=== PATIENT | female | born 1995 | race Caucasian/White ===

== ENCOUNTER 2016-10-19 14:47 | Emergency (ER) | payer OTHER ==
[~2016-10-19] VITALS: Ht 162.6 cm; Wt 58.2 kg
[~2016-10-19 14:47] MED LIST: ALBU1AER9 INH
[2016-10-19 14:49] VITALS: BP 133/82; PULSE 113; TEMP 36.8; O2SAT 97; Ht 162.6 cm; Wt 58.2 kg
[2016-10-20] MEDS ORDERED: BENZ100C18 PO (12:38)
[2016-11-26] MEDS ORDERED: FLUT0.15 NAE (12:10)
[2016-11-26] MEDS ORDERED: ALBU18002 INH (12:27)
[2016-11-26] MEDS ORDERED: LISD40CA PO (16:59)
[2016-11-26] MEDS ORDERED: CETI10TA84 PO (17:02)
[2016-11-26] MEDS ORDERED: FEXO1TAB49 PO (17:02)
== END 2016-10-19 16:06 | disposition left against medical advice (07) ==
LOC: C.EDB 14:49
DX: R05 Cough (principal); R06.02 Shortness of breath

== ENCOUNTER 2016-10-20 10:07 | Emergency (ER) | payer OTHER ==
[~2016-10-20] VITALS: Ht 162.6 cm; Wt 58.1 kg
[2016-10-20 10:18] VITALS: Ht 162.6 cm; Wt 58.1 kg
[2016-10-20] MEDS ORDERED: HYDROCODONE/HOMATROPINE SYRUP 5MG/1.5MG 5ML UDP PO STA (10:56)
--- NOTE | 2016-10-20 10:58 | EMERGENCY ROOM VISIT NOTE ---
History Report prepared by Osei: Price Mireles Under the Supervision of: Dr. Nelida Solano D.O. First contact with patient: 10:49 Chief Complaint: FEVER Stated Complaint: FEVER,COUGH, HEADACHE History of Present Illness The patient is a 21 year old female who presents to the Emergency Room with complaints of persistent cough for the past week. She also complains of difficulty breathing and a subjective fever. The patient has a history of exercise-induced asthma and has been taking her inhaler. She denies feeling like she is wheezing, leg cramping or swelling, or . Source of History: patient Onset: the past week Position: other (global) Timing: other (persistent) Associated Symptoms: + SOB (difficulty breathing), + fevers (subjective) Note: Denies: wheezing, leg cramping or swelling, Review of Systems See HPI for pertinent positives & negatives. A total of 10 systems reviewed and were otherwise negative. Past Medical & Surgical Medical Problems: (1) Acute bronchitis (2) Acute maxillary sinusitis (3) Acute sinusitis (4) Acute sinusitis (5) Adult ADHD (6) Alcohol intoxication (7) Allergic rhinitis (8) Asthma (9) Asthma (10) Asthma (11) Cough (12) Diarrhea (13) Drug overdose, multiple drugs (14) Febrile illness (15) Fever (16) Fever (17) Headache (18) Headache (19) Migraine (20) Sinus headache (21) Sinus infection (22) Sore throat (23) Sore throat (24) Upper respiratory infection (25) Urinary tract infection (26) UTI (urinary tract infection) (27) UTI (urinary tract infection) Family History Patient reports no known family medical history. Social History Smoking Status: Never Smoker Alcohol Use: none Drug Use: none Marital Status: single Housing Status: lives with roommate Occupation Status: [employer] student Current/Historical Medications Scheduled Benzonatate (Tessalon Perles), 100 MG PO TID Control Pills ( Control Pills), 1 TAB PO DAILY Cetirizine (Zyrtec), 10 MG PO QPM Fexofenadine Hcl (Haylee Allergy), 1 TAB PO QAM Fluticasone Propionate (Nasal) (Flonase Allergy Relief), 2 SPRAYS NIURKA DAILY Lisdexamfetamine Dimesylate (Vyvanse), 40 MG PO DAILY Scheduled PRN Albuterol Sulfate (Proair Respiclick), 2 PUFFS INH Q4 PRN for SOB/Wheezing Allergies Coded Allergies: Macadamia Nut Oil (Verified Allergy, Unknown, ., 10/20/16) Physical Exam Vital Signs Date Time Temp Pulse Resp B/P Pulse Ox O2 Delivery O2 Flow Rate FiO2 10/20/16 12:49 37.0 80 18 122/74 97 10/20/16 12:30 80 122/74 97 Room Air 10/20/16 10:18 37.3 106 18 134/88 97 Physical Exam HEENT: Head - normocephalic and atraumatic Pupils are equal, round, and reactive to light. Extraocular eye muscles are intact, and sclera are anicteric. Nose - moist nasal mucosa without discharge. Mouth - moist buccal mucosa. Oropharynx is nonerythematous and there is no tonsillar exudate or edema noted. Neck: Supple; no JVD, nuchal rigidity, cervical lymphadenopathy. Heart: Regular rate and rhythm. There is a normal S1 and S2 with no murmurs, clicks, or gallops appreciated. Lungs: Clear to auscultation bilaterally with no wheezes, rales, or rhonchi. Abdomen: Soft, completely nontender, nondistended, with good bowel sounds. There are no palpable pulsatile masses or hepatosplenomegaly. There is no guarding, rigidity, or rebound noted. Extremities: No evidence of cyanosis, clubbing, or edema. There are easily palpable peripheral pulses. Skin: warm and dry with good turgor and no rashes. Medical Decision & Procedures ER Provider Diagnostic Interpretation: X-ray results as stated below per interpretation by me and the radiologist: TWO VIEW CHEST CLINICAL HISTORY: Cough. Fever. FINDINGS: PA and lateral chest radiographs are compared to study dated 09/07/2015. The cardiomediastinal silhouette is unremarkable. The lungs and pleural spaces are clear. There is no pneumothorax. The bony thorax appears intact. IMPRESSION: No active disease in the chest. Electronically signed by: Jake Tay M.D. 10/20/2016 12:13 PM Dictated Date/Time: 10/20/2016 12:13 PM Medications Administered Medications (Trade) Dose Ordered Sig/Heber Route Start Time Stop Time Status Last Admin Dose Admin Hydrocodone Bit/ Homatropine Methylb (Hycodan Syrup) 5 ml NOW STAT PO 10/20/16 10:56 10/20/16 10:57 DC 10/20/16 11:03 5 ML Procedure Medications: Hycodan Syrup PO. ED Course 1053: Past medical records reviewed. The patient was evaluated in room B9. A complete history and physical exam was performed. 1056: Ordered Hycodan Syrup 5 ml PO. Patient had chest x-ray as described above. 1130: I reevaluated the patient at this time and she was feeling better. She did not like the Hycodan Syrup so I recommended Tessalon pearls. 1223: Upon reevaluation, the patient is resting comfortably. I discussed findings and results with her. She verbalized agreement of the treatment plan. She was discharged home. Medical Decision The patient is a 21 year old female who presents to the ED with a cough. Differential diagnosis includes bronchitis, pneumonia, sinusitis, and viral illness. This is a 21-year-old female patient presents to the emergency department with a cough. She has no fever at this time. O2 saturations were normal. Chest x- ray was unremarkable. I think the patient is suffering from an acute bronchitis which is most likely viral. I will treat her with cough meds. She was prescribed Tessalon Perles. The patient was told to follow-up with the PCP if the cough persists or if she develops a fever. Impression Primary Impression: Viral bronchitis Scribe Attestation The scribe's documentation has been prepared under my direction and personally reviewed by me in its entirety. I confirm that the note above accurately reflects all work, treatment, procedures, and medical decision making performed by me. Departure Information Dispostion Home / Self-Care Prescriptions Benzonatate (TESSALON PERLES) 100 Mg Cap 100 MG PO TID, #10 CAP Prov: Nelida Solano D.O. 10/20/16 Referrals No Doctor, Assigned (PCP) Forms HOME CARE DOCUMENTATION FORM, IMPORTANT VISIT INFORMATION Patient Instructions My [facility] Additional Instructions Rest. Take tessalon perles every 8 hours for cough. If symptoms worsen, return to the ER or [facility]
--- NOTE | 2016-10-20 12:15 | DIAGNOSTIC IMAGING REPORT ---
TWO VIEW CHEST CLINICAL HISTORY: Cough. Fever. FINDINGS: PA and lateral chest radiographs are compared to study dated 09/07/2015. The cardiomediastinal silhouette is unremarkable. The lungs and pleural spaces are clear. There is no pneumothorax. The bony thorax appears intact. IMPRESSION: No active disease in the chest. Electronically signed by: Jake Tay M.D. 10/20/2016 12:13 PM Dictated Date/Time: 10/20/2016 12:13 PM
[2016-10-20] MEDS ORDERED: BENZ100C18 PO (12:38)
[2016-10-20 12:49] VITALS: BP 122/74; PULSE 80; TEMP 37; O2SAT 97
[2016-11-26] MEDS ORDERED: FLUT0.15 NAE (12:10)
[2016-11-26] MEDS ORDERED: ALBU18002 INH (12:27)
[2016-11-26] MEDS ORDERED: LISD40CA PO (16:59)
[2016-11-26] MEDS ORDERED: FEXO1TAB49 PO (17:02)
[2016-11-26] MEDS ORDERED: CETI10TA84 PO (17:02)
== END 2016-10-20 12:49 | disposition home or self-care (01) ==
LOC: C.EDB 10:08
DX: J20.8 Acute bronchitis due to other specified organisms (principal); J45.909 Unspecified asthma, uncomplicated; F90.9 Attention-deficit hyperactivity disorder, unspecified type; Z87.440 Personal history of urinary (tract) infections; Z86.19 Personal history of other infectious and parasitic diseases; Z79.899 Other long term (current) drug therapy; Z91.018 Allergy to other foods

== ENCOUNTER 2016-11-03 17:40 | Emergency (ER) | payer OTHER ==
[~2016-11-03] VITALS: Ht 162.6 cm; Wt 57.2 kg
[2016-11-03 17:43] VITALS: BP 124/78; PULSE 82; TEMP 36.7; O2SAT 97; Ht 162.6 cm; Wt 57.2 kg
[2016-11-03] MEDS ORDERED: PRED20TA2 PO (18:13)
--- NOTE | 2016-11-04 02:14 | EMERGENCY ROOM VISIT NOTE ---
ED Visit Note First contact with patient: 17:50 Chief Complaint: Sinus congestion and pressure. History of Present Illness: Ms. Blanco is a 21-year-old white female who ambulates into the ED complaining of sinus congestion and pressure. Historically patient reports she has a history of sinus disease; reviewing her medical records over the last year patient has been seen in this emergency department 5-6 times and diagnosed with sinusitis. She has been encouraged to follow-up with ENT specialist but has not done so. Patient reports approximately 13 days ago she was seen in this emergency department for cough and congestion and diagnosed with viral bronchitis. She was encouraged to use her inhaler and [id number] decongestions for her symptoms. Patient goes on to report that over the last 3-4 days she has been having increasing sinus pressure over the maxillary sinuses and over the last 2 days she reports her hearing has decreased on the right; like someone put a bowl over my ear. Currently she rates her discomfort 6/10. Her pain is nonradiating. She has not identified any aggravating or alleviating factors related to the pressure. She has not taken any medication specifically for her painful discomfort but has been taking her decongestants without relief of her discomfort. Associated with her pain she reports she still has a mildly productive cough of yellow to greenish sputum. She denies fevers, chills, sweats, facial swelling/erythema, visual changes, tearing, light sensitivity, ear drainage, sore throat, difficulty swallowing, dizziness, lightheadedness, neck pain/stiffness, voice changes, hemoptysis, chest pain/discomfort, palpitations, abdominal pain, decreased appetite, nausea/ vomiting. Review of Systems: As noted above in history of present illness. 8 body systems were reviewed and found to be negative as noted above. Past Medical History: As previously noted, asthma, bronchitis, attention deficit disorder. Current Medications: control, Flonase, Vyvanse, Haylee, Zyrtec and albuterol. Allergies to Medications: Patient denies. Social History: Patient is currently University student; she feels safe in her home environment; she denies tobacco use and admits to alcohol use. Physical Examination: Vital Signs: Date Time Temp Pulse Resp B/P Pulse Ox O2 Delivery O2 Flow Rate FiO2 11/03/16 17:57 98 Room Air 2/3/17 17:43 36.7 82 20 124/78 97 Room Air GENERAL: 21-year-old female in mild distress due to pain, nontoxic-appearing, afebrile and hemodynamically stable. NEUROLOGICAL: Awake, alert and oriented to person, place and time. Answering questions appropriately and following commands. Normal gait. Good hand eye coordination. No focal motor sensory deficits. SKIN: Warm, dry and pink. No soft tissue eruptions or trauma noted. HEENT: Atraumatic and normocephalic. No erythema over the frontal or maxillary sinuses. Mild tenderness over the frontal sinuses. External ears are nontender. Auditory canals are pink and patent. Right tympanic membrane is slightly bulging. The membrane itself is pearly nguyen with normal light reflex. Left tympanic membrane is unremarkable. No preauricular or postauricular lymphadenopathy. No tenderness or erythema over the mastoid processes. PERRLA. EOMI without nystagmus. No light sensitivity. Sclera white and conjunctiva pink without drainage. No drainage from naris, but mild audible congestion. Oral cavity moist and pink. Airway patent. Uvula midline and no abscesses are seen. Pharynx is nonerythematous or edematous. No tonsillar hypertrophy or exudates. Speech normal. No cervical lymphadenopathy. Trachea midline. No jugular venous distention. BACK: No tenderness over the bony cervical spine. No nuchal rigidity. Full range of motion of the cervical spine THORAX: Lungs sounds are clear to auscultation and equal bilaterally with symmetrical chest wall. No wheezing, rales or rhonchi. No increased respiratory effort or rate. ED Course: Patient is assessed as noted above. Patient was offered pain medications and refused. Patient was educated about tonight's findings and instructed on her treatment plan; she verbalizes understanding and agreement with this plan. Clinical Impression: Sinusitis. Disposition: Patient discharged home in stable condition; prior to departure she was reassessed and subjectively reported she was pain-free. Plan: Patient was encouraged to continue her current medications as prescribed. Patient was encouraged to alternate ibuprofen and acetaminophen as needed for pain every 3 hours. Patient was prescribed prednisone 60 mg once a day for 5 days. Patient was encouraged to follow-up with ENT specialist as soon as practical for reevaluation. Patient was encouraged return the ED for worsening/uncontrolled pressure, ear drainage, visual changes, fevers, redness or swelling over the sinuses or any new/concerning symptoms.
[2016-11-26] MEDS ORDERED: FLUT0.15 NAE (12:10)
[2016-11-26] MEDS ORDERED: ALBU18002 INH (12:27)
[2016-11-26] MEDS ORDERED: LISD40CA PO (16:59)
[2016-11-26] MEDS ORDERED: FEXO1TAB49 PO (17:02)
[2016-11-26] MEDS ORDERED: CETI10TA84 PO (17:02)
== END 2016-11-03 18:21 | disposition home or self-care (01) ==
LOC: C.EDB 17:41 → C.EDD 18:21
DX: J32.9 Chronic sinusitis, unspecified (principal); J45.909 Unspecified asthma, uncomplicated; F98.8 Other specified behavioral and emotional disorders with onset usually occurring in childhood and adolescence; Z79.3 Long term (current) use of hormonal contraceptives; Z79.899 Other long term (current) drug therapy

== ENCOUNTER 2016-11-26 19:55 | Emergency (ER) | payer OTHER ==
[~2016-11-26] VITALS: Ht 160 cm; Wt 58.0 kg
[~2016-11-26 19:55] MED LIST changes: +ALBU18002 INH; -ALBU1AER9 INH; +CETI10TA84 PO; +FEXO1TAB49 PO; +FLUT0.15 NAE; +LISD40CA PO; +PRED20TA2 PO
[2016-11-26 20:02] VITALS: TEMP 37.2; Ht 160 cm; Wt 58.0 kg
[2016-11-26] MEDS ORDERED: BCPILLS PO (20:23)
--- NOTE | 2016-11-26 20:45 | DIAGNOSTIC IMAGING REPORT ---
CHEST 2 VIEWS ROUTINE CLINICAL HISTORY: Cough. Sore throat. COMPARISON STUDY: Chest radiograph October 20, 2016. FINDINGS: Lung volumes are normal and lungs are clear. There is no pneumothorax or pleural effusion. Cardiac size is normal. Mediastinal contours are normal. There is no evidence of pulmonary edema. IMPRESSION: No acute cardiopulmonary findings. Electronically signed by: Manuel Acosta M.D. 11/26/2016 8:43 PM Dictated Date/Time: 11/26/2016 8:43 PM
[2016-11-26 21:41] VITALS: BP 121/82; PULSE 73; O2SAT 98
--- NOTE | 2016-11-26 23:41 | EMERGENCY ROOM VISIT NOTE ---
History First contact with patient: 20:09 Chief Complaint: SORETHROAT Stated Complaint: SORE THROAT History of Present Illness The patient is a 21 year old female who presents to the Emergency Room with complaints of persistent sore throat symptoms for the past 7 days. The patient states that she has had intermittent sinus infections off and on for the past several months. 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 When she goes home she is following with ENT. The patient states that she has not had significant fever or chills. She does take Haylee and Zyrtec. She has had a mild cough, but no wheezing. She rates her current discomfort a 5/10. Review of Systems More than 10 systems were reviewed and otherwise negative with the exception of history of present illness. Past Medical/Surgical History Medical Problems: (1) Acute bronchitis (2) Acute maxillary sinusitis (3) Acute sinusitis (4) Acute sinusitis (5) Adult ADHD (6) Alcohol intoxication (7) Allergic rhinitis (8) Asthma (9) Asthma (10) Asthma (11) Cough (12) Diarrhea (13) Drug overdose, multiple drugs (14) Febrile illness (15) Fever (16) Fever (17) Headache (18) Headache (19) Migraine (20) Sinus headache (21) Sinus infection (22) Sore throat (23) Sore throat (24) Upper respiratory infection (25) Urinary tract infection (26) UTI (urinary tract infection) (27) UTI (urinary tract infection) Family History Patient reports no known family medical history. Social History Smoking Status: Never Smoker Alcohol Use: none Drug Use: none Marital Status: single Housing Status: lives with roommate Occupation Status: [employer] student Current/Historical Medications Scheduled Control Pills ( Control Pills), 1 TAB PO DAILY Cetirizine (Zyrtec), 10 MG PO QPM Fexofenadine Hcl (Haylee Allergy), 180 MG PO QAM Fluticasone Propionate (Nasal) (Flonase Allergy Relief), 2 SPRAYS NIURKA DAILY Lisdexamfetamine Dimesylate (Vyvanse), 40 MG PO DAILY Scheduled PRN Albuterol Sulfate (Proair Respiclick), 2 PUFFS INH Q4H PRN for SOB/Wheezing Allergies Coded Allergies: Macadamia Nut Oil (Verified Allergy, Unknown, ., 11/03/16) Uncoded Allergies: MACADAMIA NUT (Allergy, Unknown, UNKNOWN, 11/03/16) Physical Exam Vital Signs Date Time Temp Pulse Resp B/P Pulse Ox O2 Delivery O2 Flow Rate FiO2 11/26/16 21:41 73 18 121/82 98 11/26/16 20:02 37.2 69 18 126/74 97 Room Air 11/26/16 20:02 Room Air Pain Rating (0-10): 2.0 Physical Exam VITALS: Vitals are noted on the nurse's note and reviewed by myself. Vital signs stable. GENERAL: Well-developed, well-nourished, white female, who is in no acute distress and resting comfortably. Patient is cooperative with the examination. HEAD: Normocephalic atraumatic. EARS: External ear normal. External auditory canals clear, tympanic membranes pearly nguyen without erythema or effusion bilaterally. EYES: Pupils equal round and reactive to light and accommodation. Conjunctivae without injection, sclerae without icterus. Extraocular movements intact. NOSE: Patent, turbinates without inflammation or discharge. MOUTH: Mucous membranes moist. Tonsils are surgically absent. Pharynx without erythema, blood, or exudate. Uvula midline. Airway patent. NECK: Supple without nuchal rigidity. No lymphadenopathy. No thyromegaly. Cervical spine is nontender. HEART: Regular rate and rhythm without murmurs gallops or rubs. LUNGS: Very mild wheezing appreciated and the left upper lung العراقي. Overall lungs are clear bilateral. Medical Decision & Procedures ER Provider Diagnostic Interpretation: CHEST 2 VIEWS ROUTINE CLINICAL HISTORY: Cough. Sore throat. COMPARISON STUDY: Chest radiograph October 20, 2016. FINDINGS: Lung volumes are normal and lungs are clear. There is no pneumothorax or pleural effusion. Cardiac size is normal. Mediastinal contours are normal. There is no evidence of pulmonary edema. IMPRESSION: No acute cardiopulmonary findings. ED Course Physical exam and history were performed. Nursing notes and EMR were reviewed. Patient appears to have sore throat symptoms for the past week. On examination she does not have significant findings of her mouth. She does have very faint wheezing on the left side lung العراقي. Rapid strep was performed and was negative. Culture is pending. I did perform a chest x-ray, which was without acute findings. Overall the patient does appear stable for discharge home. She has albuterol at home that she can use for her slight wheezing, as this may be from some underlying asthma. The patient has been seen several times in the ER for sinus related complaints, and I'm hesitant to provide her antibiotics without significant and distinct findings. The patient does have an upcoming appointment with ENT, and was asked to keep this appointment. She was otherwise invited back to the ER with any new, worsening, or concerning symptoms. The patient was pleased with this plan and voiced understanding. The chart was completed utilizing Related Content Database (RCDb) Speech Voice Recognition Software. Grammatical errors, random word insertions, pronoun errors, and incomplete sentences are an occasional consequence of this system due to software limitations, ambient noise, and hardware issues. Any formal questions or concerns about the content, text, or information contained within the body of this dictation should be directly addressed to the provider for clarification. . Medical Decision Differential diagnosis: Etiologies such as viral syndrome, tonsillitis, streptococcal pharyngitis, mononucleosis, peritonsillar abscess, retropharyngeal abscess, otitis, pneumonia , influenza, as well as others were entertained. Impression Primary Impression: Sore throat Departure Information Dispostion Home / Self-Care Condition GOOD Referrals No Doctor, Assigned (PCP) Forms HOME CARE DOCUMENTATION FORM, IMPORTANT VISIT INFORMATION Patient Instructions My [facility] Additional Instructions You were seen and evaluated today on an emergency basis only. This is not a substitute for, or an effort to provide, complete comprehensive medical care. It is not possible to recognize and treat all injuries or illnesses in a single emergency department visit. For this reason it is recommended that you followup with ENT when you return home as scheduled. Continue your at-home medications as previously directed. You are welcome to return to the emergency department anytime with new, worsening, or concerning symptoms.
== END 2016-11-26 21:41 | disposition home or self-care (01) ==
LOC: C.EDB 19:56 → C.EDD 21:41
DX: J02.9 Acute pharyngitis, unspecified (principal); F90.9 Attention-deficit hyperactivity disorder, unspecified type; J45.909 Unspecified asthma, uncomplicated; Z87.440 Personal history of urinary (tract) infections; Z79.899 Other long term (current) drug therapy

== ENCOUNTER 2017-01-25 11:12 | Emergency (ER) | payer OTHER ==
[~2017-01-25] VITALS: Ht 160 cm; Wt 57.5 kg
[~2017-01-25 11:12] MED LIST changes: +BCPILLS PO; -PRED20TA2 PO
[2017-01-25 11:28] VITALS: BP 149/88; PULSE 75; TEMP 36.7; O2SAT 96; Ht 160 cm; Wt 57.5 kg
[2017-01-25] MEDS ORDERED: SULF800T23 PO (11:50)
[2017-01-25] MEDS ORDERED: PHEN-876 PO (11:50)
--- NOTE | 2017-01-25 11:51 | EMERGENCY ROOM VISIT NOTE ---
ED Visit Note First contact with patient: 11:43 CHIEF COMPLAINT: Frequent and painful urination HISTORY OF PRESENT ILLNESS: This 27-year-old female presents to the emergency department ambulatory complaining of increased frequency of urination, burning pain with urination, and a feeling of incomplete voiding since yesterday. The patient passes very small volumes of urine with each episode of voiding. The patient does not have abdominal pain. They deny back pain, fever, or vaginal discharge. Tthe patient has had a UTI in the past and states this feels similar. The patient does not have history of diabetes, HTN, or urinary tract system dysfunction. Patient feels they are not at risk for STIs. REVIEW OF SYSTEMS: A 6 system review of systems was completed with positives and pertinent negatives listed in the HPI. ALLERGIES: No known drug allergies MEDICATIONS: See nursing notes PMH: ADHD, asthma, allergies SOCIAL HISTORY: The patient lives locally. She does not smoke. She is a student. PHYSICAL EXAM: Vital Signs: Reviewed Nurse's notes, vital signs stable. GENERAL : This is a 21-year-old female, in no acute distress, they do not appear toxic, well-developed, well-nourished. ABDOMEN: Positive bowel sounds x 4. The abdomen is soft, mildly tender in the suprapubic area, but no masses or organs are felt. There is no CVA tenderness. The skin is clear. NEURO: Alert and oriented to person place and time. EMERGENCY DEPARTMENT COURSE: I examined the patient. The urine dip showed nitrites and leukocytes. The urine was sent for full UA and culture and sensitivity. The patient was given Bactrim and Pyridium. The patient was discharged home in good condition. DIAGNOSIS: UTI DISCHARGE INSTRUCTIONS & TREATMENT: Increase fluids especially cranberry juice , Bactrim twice a day for 5 days. Pyridium 3 times a day as needed for discomfort. The Pyridium would turn your urine orange/red. Call in 36 hours if you are not improved to check culture results, and the appropriateness of the antibiotic therapy. Return with any back pain, fevers, vomiting or generalized worsening symptoms. Test 01/25/17 11:38 Urine Color DK YELLOW Urine Appearance CLOUDY (CLEAR) Urine pH 6.0 (4.5-7.5) Urine Specific [place] 1.028 (1.000-1.030) Urine Protein TRACE (NEG) Urine Glucose (UA) NEG (NEG) Urine Ketones NEG (NEG) Urine Occult Blood 3+ (NEG) Urine Nitrite POS (NEG) Urine Bilirubin NEG (NEG) Urine Urobilinogen NEG (NEG) Urine Leukocyte Esterase LARGE (NEG) Urine WBC (Auto) >30 /hpf (0-5) Urine RBC (Auto) >30 /hpf (0-4) Urine Hyaline Casts (Auto) 1-5 /lpf (0-5) Urine Epithelial Cells (Auto) 20-30 /lpf (0-5) Urine Bacteria (Auto) 4+ (NEG) Urine Test NEG (NEG) Problem List Medical Problems: (1) Acute bronchitis Status: Resolved (2) Acute maxillary sinusitis Status: Resolved (3) Acute sinusitis Status: Resolved (4) Acute sinusitis Status: Resolved (5) Adult ADHD Status: Chronic (6) Alcohol intoxication Status: Resolved (7) Allergic rhinitis Status: Chronic (8) Asthma Status: Chronic (9) Asthma Status: Resolved (10) Asthma Status: Resolved (11) Cough Status: Resolved (12) Diarrhea Status: Resolved (13) Drug overdose, multiple drugs Status: Resolved (14) Febrile illness Status: Resolved (15) Fever Status: Resolved (16) Fever Status: Resolved (17) Headache Status: Resolved (18) Headache Status: Resolved (19) Migraine Status: Chronic (20) Sinus headache Status: Resolved (21) Sinus infection Status: Resolved (22) Sore throat Status: Resolved (23) Sore throat Status: Resolved (24) Upper respiratory infection Status: Resolved (25) Urinary tract infection Status: Resolved (26) UTI (urinary tract infection) Status: Resolved (27) UTI (urinary tract infection) Status: Resolved Current/Historical Medications Scheduled Control Pills ( Control Pills), 1 TAB PO DAILY Cetirizine (Zyrtec), 10 MG PO QPM Fexofenadine Hcl (Haylee Allergy), 180 MG PO QAM Fluticasone Propionate (Nasal) (Flonase Allergy Relief), 2 SPRAYS NIURKA DAILY Lisdexamfetamine Dimesylate (Vyvanse), 40 MG PO DAILY Phenazopyridine HCl (Pyridium), 200 MG PO TID Sulfa/Trimethoprim (Bactrim Ds 800MG/160MG), 1 TAB PO BID Scheduled PRN Albuterol Sulfate (Proair Respiclick), 2 PUFFS INH Q4H PRN for SOB/Wheezing Allergies Coded Allergies: Macadamia Nut Oil (Verified Allergy, Unknown, ., 01/25/17) Uncoded Allergies: MACADAMIA NUT (Allergy, Unknown, UNKNOWN, 11/03/16) Vital Signs Date Time Temp Pulse Resp B/P Pulse Ox O2 Delivery O2 Flow Rate FiO2 01/25/17 11:28 36.7 75 18 149/88 96 Room Air Laboratory Results Test 01/25/17 11:38 Urine Color DK YELLOW Urine Appearance CLOUDY (CLEAR) Urine pH 6.0 (4.5-7.5) Urine Specific [place] 1.028 (1.000-1.030) Urine Protein TRACE (NEG) Urine Glucose (UA) NEG (NEG) Urine Ketones NEG (NEG) Urine Occult Blood 3+ (NEG) Urine Nitrite POS (NEG) Urine Bilirubin NEG (NEG) Urine Urobilinogen NEG (NEG) Urine Leukocyte Esterase LARGE (NEG) Urine WBC (Auto) >30 /hpf (0-5) Urine RBC (Auto) >30 /hpf (0-4) Urine Hyaline Casts (Auto) 1-5 /lpf (0-5) Urine Epithelial Cells (Auto) 20-30 /lpf (0-5) Urine Bacteria (Auto) 4+ (NEG) Urine Test NEG (NEG) Departure Information Impression Primary Impression: Urinary tract infection Dispostion Home / Self-Care Condition GOOD Prescriptions Phenazopyridine HCl (Pyridium) 200 Mg Tab 200 MG PO TID for 3 Days, #9 TAB Prov: Tereza Cole PA-C 01/25/17 Sulfa/Trimethoprim (Bactrim Ds 800MG/160MG) Tab 1 TAB PO BID for 5 Days, #10 TAB Prov: Tereza Cole PA-C 01/25/17 Referrals No Doctor, Assigned (PCP) Forms HOME CARE DOCUMENTATION FORM, IMPORTANT VISIT INFORMATION, School Instructions Return To School: 1 day Patient Instructions [facility], Urinary Tract Infecs Women Additional Instructions Increase fluids especially cranberry juice, Bactrim twice a day for 5 days. Pyridium 3 times a day as needed for discomfort. The Pyridium would turn your urine orange/red. Call in 36 hours if you are not improved to check culture results, and the appropriateness of the antibiotic therapy. Return with any back pain, fevers, vomiting or generalized worsening symptoms.
[2017-01-25 12:11] LABS: MANUAL MICROSCOPIC REQUIRED? NO; REVIEW REQ? NO; URINE APPEARANCE CLOUDY (CLEAR); URINE BILIRUBIN NEG (NEG); URINE COLOR DK YELLOW; URINE EPITHELIAL CELL AUTO 20-30 /lpf (0-5); URINE NITRITE POS (NEG); URINE SPECIFIC GRAVITY 1.028 (1.000-1.030); UROBILINOGEN NEG (NEG); ZZUR CULT IF INDIC CLEAN CATCH YES
== END 2017-01-25 11:56 | disposition home or self-care (01) ==
LOC: C.EDB 11:13 → C.EDD 11:56
DX: N39.0 Urinary tract infection, site not specified (principal); F90.9 Attention-deficit hyperactivity disorder, unspecified type; J45.909 Unspecified asthma, uncomplicated; Z87.440 Personal history of urinary (tract) infections; Z79.3 Long term (current) use of hormonal contraceptives; Z79.899 Other long term (current) drug therapy